=== PATIENT | female | born 1945 | race Caucasian/White ===

== ENCOUNTER → 2019-09-28 | Outpatient (CLI) | payer MEDICARE, BC | LOC: FB.CLBR 12:13 | PROVIDERS: ATTEND Nurse Practitioner Family | DX: R42 Dizziness and giddiness (principal); R53.83 Other fatigue | CPT/HCPCS: 36415; 80048; 85025; 99213 ==

== ENCOUNTER 2019-11-03 16:24 | Emergency (ER) | payer MEDICARE, BC ==
[2019-11-03] MEDS ORDERED: Azithromycin 250 MG Tab PO ONE (16:25)
--- NOTE | 2019-11-03 17:22 | EDM.PDOC ---
ED HPI GENERAL MEDICAL PROBLEM - General Chief Complaint: Respiratory Problem Stated Complaint: SINUS HEADACHE, DIZZY Time Seen by Provider: 11/03/19 17:20 Source of Information: Reports: Patient History Limitations: Reports: No Limitations - History of Present Illness INITIAL COMMENTS - FREE TEXT/NARRATIVE: 74 you with cough,congestion and facial pressure for 3 days.Insidious onset. associated with fever and chills,and its progressively getting worse. - Related Data Allergies Allergy/AdvReac Type Severity Reaction Status Date / Time codeine Allergy Unknown unknown Verified 11/03/19 16:39 Penicillins Allergy Unknown unknown Verified 11/03/19 16:38 Home Meds: Home Meds Insulin Detemir [Levemir Flextouch] 100 ml SUBCUT DAILY 11/03/19 [History] Simvastatin 20 mg PO DAILY 11/03/19 [History] amLODIPine [Norvasc] 10 mg PO DAILY 11/03/19 [History] lisinopriL [Lisinopril] 10 mg PO DAILY 11/03/19 [History] Past Medical History HEENT History: Reports: Impaired Vision, Other (See Below) Other HEENT History: takes eye drops, doesn't know what for Cardiovascular History: Reports: High Cholesterol, Hypertension LEGAL CONSULTANT History: Reports: Other (See Below) Other LEGAL CONSULTANT History: ovaries taken out Musculoskeletal History: Reports: Fracture, Other (See Below) Endocrine/Metabolic History: Reports: Diabetes, Type II - Past Surgical History Musculoskeletal Surgical History: Reports: Other (See Below) Other Musculoskeletal Surgeries/Procedures:: left elbow and left wrist surgery/ fractures and pelvic fracture Social & Family History - Family History Family Medical History: Noncontributory ED ROS GENERAL - Review of Systems Review Of Systems: Comprehensive ROS is negative, except as noted in HPI. ED EXAM, GENERAL - Physical Exam Exam: See Below Exam Limited By: No Limitations General Appearance: Other (Sick appearing) Ears: Normal External Exam Ear Exam: Bilateral Ear: Auricle Normal, Canal Normal, TM normal Nose: Nasal Drainage Throat/Mouth: Normal Inspection Head: Atraumatic Neck: Normal Inspection Respiratory/Chest: No Respiratory Distress, Lungs Clear Cardiovascular: Normal Peripheral Pulses Neurological: Alert, Oriented Psychiatric: Normal Affect Course - Vital Signs Last Recorded V/S: Last Vital Signs Temp 100.1 F 11/03/19 16:34 Pulse 96 11/03/19 16:34 Resp 14 11/03/19 16:34 BP 154/64 H 11/03/19 16:34 Pulse Ox 97 11/03/19 16:34 Departure - Departure Time of Disposition: 17:22 Disposition: Home, Self-Care 01 Condition: Good Clinical Impression: Sinusitis - Discharge Information Referrals: PCP,Not In Area [Primary Care Provider] - Sepsis Event Note - Evaluation Sepsis Screening Result: No Definite Risk - Focused Exam Vital Signs: Vital Signs Temp Pulse Resp BP Pulse Ox 11/03/19 16:34 100.1 F 96 14 154/64 H 97 Date Exam was Performed: 11/03/19 Time Exam was Performed: 17:20 - Problem List & Annotations (1) Sinusitis SNOMED Code(s): 52789063 Code(s): J32.9 - CHRONIC SINUSITIS, UNSPECIFIED Status: Acute Current Visit: Yes Qualifiers: Sinusitis location: frontal - Problem List Review Problem List Initiated/Reviewed/Updated: Yes - Assessment/Plan Plan: Buck
== END 2019-11-03 17:38 | disposition home or self-care (01) ==
LOC: FB.ED 16:24
DX: J32.9 Chronic sinusitis, unspecified (principal); Z79.899 Other long term (current) drug therapy; Z88.5 Allergy status to narcotic agent; Z88.1 Allergy status to other antibiotic agents
CPT/HCPCS: 99283; A9270

== ENCOUNTER 2019-11-25 06:37 | Day surgery (SDC) | payer MEDICARE, BC ==
[2019-11-25] MEDS ORDERED: Propofol 200 MG/20 ML SDV IV ONE (06:38)
[2019-11-25] MEDS ORDERED: Lidocaine 1% PF 2 ML SDV INJECT ONE (06:38)
[2019-11-25] MEDS ORDERED: Lactated Ringers 1,000 ML IV SCH (06:45)
[2019-11-25] MEDS ORDERED: Sodium Chloride 0.9% 10 ML Syringe FLUSH PRN (06:45)
--- NOTE | 2019-11-25 08:20 | PCM.OPNOTE ---
- General Post-Op/Procedure Note Date of Surgery/Procedure: 11/25/19 Operative Procedure(s): c scope Findings: sigmoid diverticulosis Pre Op Diagnosis: screening Post-Op Diagnosis: sigmoid diverticulosis Anesthesia Technique: MAC Primary Surgeon: Tomasz Han Anesthesia Provider: Tien Cm Complications: None Condition: Good Free Text/Narrative:: see dictation
--- NOTE | 2019-11-25 09:24 | PREOP ---
ADMISSION DATE: 11/25/2019 HISTORY OF PRESENT ILLNESS: This is a 74-year-old white female, due for a followup colonoscopy. She has a negative family history for colon cancer or colon polyps. She is currently undergoing no complaints. PAST MEDICAL HISTORY: Significant for type 2 diabetes, obesity, esophageal reflux, cystic mastopathy, osteoporosis, as well as hyperlipidemia and hypertension. PAST SURGICAL HISTORY: Significant for oophorectomy, open reduction of the left elbow. CURRENT MEDICATIONS: Include the followin. Lisinopril 10 mg daily. 2. Latanoprost 0.005% ophthalmic solution 1 drop in the left eye at bedtime. 3. Hydrochlorothiazide 25 mg tablet, take 1/2 by mouth per day. 4. She takes Tylenol on a p.r.n. basis. 5. Advil on a p.r.n. basis. 6. Glucophage 1000 mg b.i.d. 7. Claritin 10 mg 1 time a day as needed. 8. She takes a baby aspirin 81 mg twice a week. 9. She currently is on insulin Levemir 100 units subcu, 18 units at bedtime, and 26 units at night. 10.Simvastatin 20 mg daily. 11.Multivitamin per day. 12.Losartan 100 mg per day. ALLERGIES: She is allergic to penicillin, codeine, eggs, fentanyl, influenza virus, and Versed. REVIEW OF SYSTEMS: HEENT: Negative. RESPIRATORY: Negative. CARDIOVASCULAR: Negative. GASTROINTESTINAL: Negative. GENITOURINARY: Negative. MUSCULOSKELETAL: She notes myalgias and she has her allergies. NEUROLOGIC: Negative. SKIN: Denies any bleeding or bruising tendencies. PHYSICAL EXAMINATION: VITAL SIGNS: Reviewed, stable, afebrile. GENERAL: This is a well-developed, well-nourished white female, appearing in no acute distress. HEENT: Grossly within normal limits. LUNGS: Clear to auscultation. HEART: Regular rate and rhythm. ABDOMEN: Soft, nontender. ASSESSMENT: Need for screening colonoscopy. PLAN/INFORMED CONSENT: C-scope. Procedure and risks explained to the patient to include bleeding, perforation, and infection. The patient expresses understanding and she asked us to proceed. /[id number] /MODL
--- NOTE | 2019-11-25 12:00 | OR ---
DATE OF OPERATION: 11/25/2019 SURGEON: Tomasz Han MD PROCEDURE PERFORMED: Colonoscopy. PREOPERATIVE DIAGNOSIS: Need for screening colonoscope. POSTOPERATIVE DIAGNOSIS: Sigmoid diverticulosis. INDICATIONS FOR PROCEDURE: This is a 74-year-old white female who presents for a screening colonoscopy. She was offered and accepted same. DESCRIPTION OF OPERATION: After an excellent IV sedation was administered, digital rectal exam was performed. No marked abnormality was noted. Flexible colonoscope was inserted and advanced to the cecum. The prep was good. There were some areas that we had to irrigate, but we got an excellent view of the mucosa. The following findings were noted: Ascending colon, unremarkable. Transverse colon, unremarkable. Descending colon, unremarkable. Sigmoid, mild diverticulosis. Rectum and anus, unremarkable. The patient tolerated the procedure well. RECOMMENDATIONS: Follow up scope on a p.r.n. basis or in 10 years depending on her health. /[id number] /HARRIS
== END 2019-11-25 09:18 | disposition home or self-care (01) ==
LOC: FB.SDS 06:37
PROVIDERS: ATTEND Surgery
DX: Z12.11 Encounter for screening for malignant neoplasm of colon (principal); K57.30 Diverticulosis of large intestine without perforation or abscess without bleeding; E11.9 Type 2 diabetes mellitus without complications; M81.0 Age-related osteoporosis without current pathological fracture; E78.5 Hyperlipidemia, unspecified; I10 Essential (primary) hypertension; E66.9 Obesity, unspecified; Z68.28 Body mass index [BMI] 28.0-28.9, adult; Z91.012 Allergy to eggs; Z88.0 Allergy status to penicillin; Z88.5 Allergy status to narcotic agent; Z88.7 Allergy status to serum and vaccine; Z88.8 Allergy status to other drugs, medicaments and biological substances; Z79.4 Long term (current) use of insulin; Z79.82 Long term (current) use of aspirin; Z79.899 Other long term (current) drug therapy
CPT/HCPCS: J2001; J2704; J7120

== ENCOUNTER 2025-08-09 17:39 | Emergency (ER) | payer OTHER, MEDICARE, BC | END 2025-08-09 19:22 | disposition home or self-care (01) | LOC: FB.ED 17:39 | DX: S93.402A Sprain of unspecified ligament of left ankle, initial encounter (principal); S20.212A Contusion of left front wall of thorax, initial encounter; E78.00 Pure hypercholesterolemia, unspecified; I10 Essential (primary) hypertension; E11.9 Type 2 diabetes mellitus without complications; Z88.5 Allergy status to narcotic agent; Z91.012 Allergy to eggs; Z88.0 Allergy status to penicillin; Z88.7 Allergy status to serum and vaccine; Z88.4 Allergy status to anesthetic agent; Z79.4 Long term (current) use of insulin; Z79.899 Other long term (current) drug therapy; Z79.82 Long term (current) use of aspirin; Z79.84 Long term (current) use of oral hypoglycemic drugs; V49.49XA Driver injured in collision with other motor vehicles in traffic accident, initial encounter; Y93.89 Activity, other specified | CPT/HCPCS: 71101; 73610; 99284; A9270 ==